=== PATIENT | female | born 1980 | race Hispanic/Latino ===

== ENCOUNTER 2021-02-06 08:07 | Outpatient (CLI) | payer OTHER | END 2021-02-06 08:08 | disposition home or self-care (01) | LOC: CSHULT 08:07 | PROVIDERS: ATTEND Internal Medicine Gastroenterology | DX: K62.5 Hemorrhage of anus and rectum (principal); R10.11 Right upper quadrant pain; N13.30 Unspecified hydronephrosis | CPT/HCPCS: 93975 ==